=== PATIENT | female | born 1995 ===

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

== ENCOUNTER 2017-11-24 17:21 | Emergency (ER) | payer MEDICAID ==
[2017-11-24 17:34] VITALS: BMI 17.7
[2017-11-24 17:35] VITALS: BP 114/73; PULSE 88; RESP 19; TEMP 98.7; O2SAT 99
--- NOTE | 2017-11-24 18:28 | ED PDOC ---
HPI: General Adult Time Seen by Provider: 11/24/17 17:50 Chief Complaint (Nursing): Dizziness/Lightheaded Chief Complaint (Provider): Dizziness History Per: Patient History/Exam Limitations: no limitations Onset/Duration Of Symptoms: Days (x1 week) Additional Complaint(s): Panchito Chaves is a 22 year old female, with no significant past medical history, who presents to the emergency department complaining of dizziness and nausea onset for x1 week. Patient is unsure if she is . LMP was on October 12. She denies any vaginal bleeding, abdominal pain, vomiting or other medical complaints. PMD: None provided. Past Medical History Reviewed: Historical Data, Nursing Documentation, Vital Signs Vital Signs: Last Vital Signs Temp 98.7 F 11/24/17 17:34 Pulse 88 11/24/17 17:34 Resp 19 11/24/17 17:34 BP 114/73 11/24/17 17:34 Pulse Ox 99 11/24/17 18:30 - Medical History PMH: No Chronic Diseases - Surgical History Surgical History: No Surg Hx - Family History Family History: States: Unknown Family Hx - Social History Current smoker - smoking cessation education provided: No Alcohol: None Drugs: Denies - Home Medications Home Medications: Ambulatory Orders Medication Instructions Recorded Cyclobenzaprine [Cyclobenzaprine 10 mg PO BID #15 tab 10/12/16 HCl] Multivit/Folic Acid/I 1 tab PO DAILY #30 tab 11/24/17 [ Plus] - Allergies Allergies/Adverse Reactions: Allergies Allergy/AdvReac Type Severity Reaction Status Date / Time Unobtainable Allergy Verified 10/12/16 01:30 Review of Systems ROS Statement: Except As Marked, All Systems Reviewed And Found Negative Gastrointestinal: Positive for: Nausea. Negative for: Vomiting, Abdominal Pain Genitourinary Female: Negative for: Vaginal Bleeding Neurological: Positive for: Dizziness Physical Exam - Reviewed Nursing Documentation Reviewed: Yes Vital Signs Reviewed: Yes - Physical Exam Appears: Positive for: Non-toxic, No Acute Distress Head Exam: Positive for: ATRAUMATIC, NORMAL INSPECTION, NORMOCEPHALIC Skin: Positive for: Normal Color, Warm, Dry Eye Exam: Positive for: Normal appearance, EOMI, PERRL Neck: Positive for: Painless ROM Cardiovascular/Chest: Positive for: Regular Rate, Rhythm. Negative for: Murmur Respiratory: Positive for: Normal Breath Sounds. Negative for: Respiratory Distress Extremity: Positive for: Normal ROM (upper and lower extremities). Negative for : Deformity, Swelling Neurologic/Psych: Positive for: Alert, Oriented, Gait (steady). Negative for: Motor/Sensory Deficits - ECG O2 Sat by Pulse Oximetry: 99 (RA) Pulse Ox Interpretation: Normal Medical Decision Making Medical Decision Making: Time: 17:50 Initial Impression: Initial Plan: 18:00 -Patient tested positive for and states its her first time. Scribe Attestation: Documented by Yair Summers, acting as a scribe for Melba Carrillo PA-C Provider Scribe Attestation: All medical record entries made by the Scribe were at my direction and personally dictated by me. I have reviewed the chart and agree that the record accurately reflects my personal performance of the history, physical exam, medical decision making, and the department course for this patient. I have also personally directed, reviewed, and agree with the discharge instructions and disposition. Disposition - Clinical Impression Clinical Impression: - Disposition [facility]] Disposition: Routine/Home Disposition Time: 18:34 Condition: STABLE Prescriptions: Multivit/Folic Acid/I [ Plus] 1 tab PO DAILY #30 tab Instructions: - The First Month Forms: VIDDIX (Georgian), VIDDIX (French)
== END 2017-11-24 18:35 | disposition home or self-care (01) ==
LOC: H.ER 17:21
DX: R42 Dizziness and giddiness (principal); Z33.1 Pregnant state, incidental

== ENCOUNTER 2017-11-26 11:08 | Emergency (ER) | payer MEDICAID ==
[2017-11-26 11:08] VITALS: BMI 17.7
--- NOTE | 2017-11-26 12:15 | ED PDOC ---
HPI: Female Pain Time Seen by Provider: 11/26/17 11:20 Chief Complaint (Nursing): Female Genitourinary Chief Complaint (Provider): Female Genitourinary History Per: Patient History/Exam Limitations: no limitations Onset/Duration Of Symptoms: Days Current Symptoms Are (Timing): Still Present Additional Complaint(s): 22 y/o female with a PMHx of and 6 weeks presents to the ED complaining of vaginal spotting and pelvic pain, onset this morning. Patient states she has not had any care. Denies fever, vomiting, INTEGRATION SOFTWARE ENGINEER, taking vitamins, and urinary symptoms. PMD: None Provided : 1 Para: 0 Past Medical History Reviewed: Historical Data, Nursing Documentation, Vital Signs Vital Signs: Last Vital Signs Temp 97.9 F 11/26/17 11:36 Pulse 82 11/26/17 11:36 Resp 18 11/26/17 11:36 BP 119/70 11/26/17 11:36 Pulse Ox 98 11/26/17 11:36 - Medical History PMH: No Chronic Diseases - Surgical History Surgical History: No Surg Hx - Family History Family History: States: Unknown Family Hx - Social History Current smoker - smoking cessation education provided: No Alcohol: None Drugs: Denies - Home Medications Home Medications: Ambulatory Orders Medication Instructions Recorded Cyclobenzaprine [Cyclobenzaprine 10 mg PO BID #15 tab 10/12/16 HCl] Multivit/Folic Acid/I 1 tab PO DAILY #30 tab 11/24/17 [ Plus] Nitrofurantoin Macrocrystals 100 mg PO BID #14 cap 11/26/17 [Macrobid] - Allergies Allergies/Adverse Reactions: Allergies Allergy/AdvReac Type Severity Reaction Status Date / Time No Known Allergies Allergy Verified 11/26/17 11:36 Review of Systems ROS Statement: Except As Marked, All Systems Reviewed And Found Negative Constitutional: Negative for: Fever Gastrointestinal: Negative for: Vomiting Genitourinary Female: Negative for: Dysuria, Hematuria Physical Exam - Reviewed Nursing Documentation Reviewed: Yes Vital Signs Reviewed: Yes - Physical Exam Appears: Positive for: No Acute Distress Skin: Positive for: Normal Color, Warm, Dry Eye Exam: Positive for: Normal appearance, EOMI, PERRL ENT: Positive for: Normal ENT Inspection Neck: Positive for: Normal, Painless ROM Cardiovascular/Chest: Positive for: Regular Rate, Rhythm Respiratory: Positive for: Normal Breath Sounds Gastrointestinal/Abdominal: Positive for: Normal Exam, Soft, Tenderness (mild suprapubic tenderness) Pelvic Exam: Positive for: No Cerv. Motion Tender, Other (Normal exam, no bleeding at this time. os closed. Certified Coatings Inspector: Gaviota Montero). Negative for: Active Bleeding Extremity: Positive for: Normal ROM Neurologic/Psych: Positive for: Alert, Oriented (x3). Negative for: Motor/ Sensory Deficits - Laboratory Results Result Diagrams: 11/26/17 12:38 11/26/17 12:38 - ECG O2 Sat by Pulse Oximetry: 98 (RA) Pulse Ox Interpretation: Normal Medical Decision Making Medical Decision Making: Time: 122 abd pain, , with vag bleeding Rule out ectopic vs threatened ab. Plan: -- Type and Screen -- Beta-HCG, Quantitative -- CMP -- CBC with differentials -- Urine C&S -- Urinalysis -- OB Preg 1st Tri & OB Transvag US Time: 1512 TRANSVAG US RESULTS FINDINGS: UTERUS: Single Live intrauterine gestation. CRL is 5 mm equivalent to 6 weeks 2 days. Gestational sac diameter is 26 mm equivalent to 7 weeks 3 days. age (Ultrasound estimated): 6 weeks 6 days Date of delivery (Ultrasound estimated) : 07/16/2018 Heart rate: 117 bpm. Isabell-gestational hemorrhage: None. 2 mm yolk sac visualized. Uterus measures 8.9 x 6.2 x 4.8 cm. No mass CERVIX: Long and closed. No cervical abnormality seen. RIGHT OVARY: Measures 3.2 x 1.8 x 2.6 cm. No mass. Normal flow. LEFT OVARY: Measures 3.0 x 2.4 x 3.1 cm. No mass. Normal flow. FREE FLUID: None. OTHER FINDINGS: None. IMPRESSION: Single live intrauterine gestation of approximately 6 weeks 6 days gestational age. No subchorionic hemorrhage. heart rate 117 beats per minute. 2 mm yolk sac. Time: 1522 -- Labs and US reviewed w patient, patient presents with a UTI and approximately 7 week . Time: 1625 -- Patient to be discharged home with a UTI and threatened miscarriage. Patient was advised to take vitamins. -- Advised to follow up with consulting practice director in 1-2 days without fail. Advised to take medication as prescribed. Return to the emergency room at any time for any new or worsening symptoms such as pain or bleeding -- Patient states she fully agrees with and understands discharge instructions. States that she agrees with the plan and disposition. Verbalized and repeated discharge instructions and plan. I have given the patient opportunity to ask any additional questions. Scribe Attestation: Documented by Juan F Santana acting as a scribe for Dr. Olivia Leong MD. Provider Scribe Attestation: All medical record entries made by the Scribe were at my direction and personally dictated by me. I have reviewed the chart and agree that the record accurately reflects my personal performance of the history, physical exam, medical decision making, and the department course for this patient. I have also personally directed, reviewed, and agree with the discharge instructions and disposition. Disposition - Clinical Impression Clinical Impression: Threatened - Patient ED Disposition Is Patient to be Admitted: No Counseled Patient/Family Regarding: Studies Performed, Diagnosis, Need For Followup - Disposition Referrals: [facility] [Outside] [facility] [Outside] Disposition: Routine/Home Disposition Time: 16:00 Condition: IMPROVED Additional Instructions: Follow up with your primary consulting practice director in 2 days return to the ED with any worsening or concerning symptoms Prescriptions: Nitrofurantoin Macrocrystals [Macrobid] 100 mg PO BID #14 cap Instructions: Urinary Tract Infection, Adult (DC), Threatened Miscarriage (DC) Forms: ShareThe (Belarusian)
[2017-11-26 12:44] LABS: BASO # 0.1 K/uL (0.0-0.2); BASO % 0.7 % (0.0-2.0); EOS % 0.1 % (0.0-4.0); HEMOGLOBIN 15.1 g/dL (12.0-16.0); LYMPH # 1.9 K/uL (1.0-4.3); LYMPH % 19.9 % (20.0-40.0); MEAN CELL VOLUME 87.5 fl (81.0-99.0); MEAN CORPUSCULAR HEMOGLOBIN 30.8 pg (27.0-31.0); MEAN CORPUSCULAR HGB CONC 35.2 g/dL (33.0-37.0); MEAN PLATELET VOLUME 8.6 fl (7.2-11.7); MONO # 0.5 K/uL (0.0-0.8); MONO % 5.6 % (0.0-10.0); NEUT # 6.9 K/uL (1.8-7.0); NEUT % 73.7 % (50.0-75.0); RBC 4.89 Mil/uL (3.80-5.20); RED CELL DISTRIBUTION WIDTH 13.1 % (11.5-14.5); WHITE BLOOD COUNT 9.3 K/uL (4.8-10.8)
[2017-11-26 12:53] LABS: SQUAMOUS EPITHIAL 21 /hpf (0-5); URINE BACTERIA OCC (<OCC); URINE BILIRUBIN NEGATIVE (NEGATIVE); URINE BLOOD MODERATE (NEGATIVE); URINE CLARITY CLOUDY (Clear); URINE COLOR YELLOW (YELLOW); URINE GLUCOSE (UA) NEG (Normal); URINE LEUKOCYTE ESTERASE MOD Leu/uL (Negative); URINE PROTEIN NEGATIVE (NEGATIVE); URINE UROBILINOGEN 0.2-1.0 mg/dL (0.2-1.0)
[2017-11-26 13:10] LABS: ALB/GLOB RATIO 1.4 (1.0-2.1); ALBUMIN 4.9 g/dL (3.5-5.0); ALT/SGPT 19 U/L (9-52); AST/SGOT 19 U/L (14-36); BLOOD UREA NITROGEN 8 mg/dl (7-17); CALCIUM 9.9 mg/dL (8.4-10.2); GFR AFRICAN-AMERICAN > 60; GFR NON-AFRICAN AMERICAN > 60
--- NOTE | 2017-11-26 15:14 | US ---
PROCEDURE: OB Pelvic Ultrasound HISTORY: , bleeding COMPARISON: None available. FINDINGS: UTERUS: Single Live intrauterine gestation. CRL is 5 mm equivalent to 6 weeks 2 days. Gestational sac diameter is 26 mm equivalent to 7 weeks 3 days. age (Ultrasound estimated): 6 weeks 6 days Date of delivery (Ultrasound estimated) : 07/16/2018 Heart rate: 117 bpm. Isabell-gestational hemorrhage: None. 2 mm yolk sac visualized. Uterus measures 8.9 x 6.2 x 4.8 cm. No mass CERVIX: Long and closed. No cervical abnormality seen. RIGHT OVARY: Measures 3.2 x 1.8 x 2.6 cm. No mass. Normal flow. LEFT OVARY: Measures 3.0 x 2.4 x 3.1 cm. No mass. Normal flow. FREE FLUID: None. OTHER FINDINGS: None. IMPRESSION: Single live intrauterine gestation of approximately 6 weeks 6 days gestational age. No subchorionic hemorrhage. heart rate 117 beats per minute. 2 mm yolk sac.
[2017-11-26 16:43] VITALS: BP 114/68; PULSE 80; RESP 16; TEMP 98
[2017-11-26 18:34] VITALS: O2SAT 98
== END 2017-11-26 16:42 | disposition home or self-care (01) ==
LOC: H.ER 11:08
DX: O20.0 Threatened abortion (principal); O23.41 Unspecified infection of urinary tract in pregnancy, first trimester; Z3A.01 Less than 8 weeks gestation of pregnancy

== ENCOUNTER 2018-06-27 15:01 | Inpatient (IN) | payer MEDICAID, OTHER ==
[2018-06-27 18:21] VITALS: BMI 30.2
[2018-06-27 18:44] LABS: BASO % 0.2 % (0.0-2.0); EOS % 0.4 % (0.0-4.0); HEMOGLOBIN 13.9 g/dL (12.0-16.0); LYMPH # 1.5 K/uL (1.0-4.3); LYMPH % 13.8 % (20.0-40.0); MEAN CELL VOLUME 88.2 fl (81.0-99.0); MEAN CORPUSCULAR HEMOGLOBIN 29.7 pg (27.0-31.0); MEAN CORPUSCULAR HGB CONC 33.7 g/dL (33.0-37.0); MEAN PLATELET VOLUME 8.3 fl (7.2-11.7); MONO # 0.9 K/uL (0.0-0.8); MONO % 7.8 % (0.0-10.0); NEUT # 8.7 K/uL (1.8-7.0); NEUT % 77.8 % (50.0-75.0); RBC 4.67 Mil/uL (3.80-5.20); RED CELL DISTRIBUTION WIDTH 13.9 % (11.5-14.5); WHITE BLOOD COUNT 11.1 K/uL (4.8-10.8)
[2018-06-28] MEDS ORDERED: Nalbuphine HCL 10 mg/ml Ampule IVP PRN ×2 (00:41→23:02)
[2018-06-28] MEDS ORDERED: Lactated Ringer's 1,000 ML IV SCH ×3 (00:45→20:15)
[2018-06-28] MEDS ORDERED: Nalbuphine 20 mg/ml Inj (10 ml) ONE (00:53)
[2018-06-28] MEDS ORDERED: Fentanyl/Bupivacaine HCl 250 ML EPI ONE (06:34)
[2018-06-28] MEDS ORDERED: Bupivacaine HCl 0.25% PF (10 ml) Inj ONE (06:57)
[2018-06-28] MEDS ORDERED: OXYTOCIN/0.9 % NS 20 UNIT/1,000 ML BAG IV ONE (08:57)
[2018-06-28] MEDS ORDERED: Oxytocin 30 UNIT 30 UNITS/500 ML BAG IV ONE (08:57)
[2018-06-28] MEDS: Lactated Ringer's 1,000 ML IV SCH ×2 (10:30→14:30)
--- NOTE | 2018-06-28 12:23 | OBPN ---
Datetime: 06/28/2018 12:17 IP Progress Impression: Normal progression of labor IP Procedures: Sterile Vag Exam IP Progress Plan: Anticipate Vaginal Delivery Membranes, Provider: Ruptured Amniotic Fluid Color, Provider: Clear FHR - Baseline A Provider: 120's IP Progress Note Comment: 22 yo G1 at 37 wks w/ PROM, s/p cevidil, now fully dilated Will start pushing Anticipate VD Vital Signs Provider: Reviewed NICHD Variability Prov Fetus A: Moderate 6-25bpm Dilatation, Provider: 10 Effacement, Provider: 100 Station, Provider: 1 NICHD Decel Fetus A IP Provider: None Datetime: 06/27/2018 15:39 Pool Provider: Positive Nitrazine Provider: Positive NICHD Accel Fetus A IP Provider: [id number] FHR Category Provider Fetus A: Category I
[2018-06-28] MEDS ORDERED: Lactated Ringer's 1,000 ML IV ONE (17:16)
[2018-06-28] MEDS ORDERED: ceFAZolin 1 GM in Sodium Chloride 0.9% 100 ML IVPB ONE (17:16)
[2018-06-28] MEDS ORDERED: ePHEDrine 50 mg/ml Inj ONE (17:29)
[2018-06-28] MEDS ORDERED: Bupivacaine HCl 0.5% PF (30 ml) Inj ONE (17:30)
[2018-06-28] MEDS ORDERED: Morphine 5 mg/10 ml preservative-free Inj(Duramorph) ONE (18:52)
[2018-06-28] MEDS ORDERED: Oxycodone/Acetaminophen 5/325 mg Tab PO PRN ×5 (19:19→23:02)
--- NOTE | 2018-06-28 19:39 | OBPN ---
Datetime: 06/28/2018 19:36 IP Progress Impression: Arrest of dilatation/descent IP Informed Consent Obtain: Section Delivery; Risks, Benefits and Alternatives Discussed IP Procedures: Sterile Vag Exam IP Progress Plan: Deliver- Section Membranes, Provider: Ruptured Amniotic Fluid Color, Provider: Clear FHR - Baseline A Provider: 140's IP Progress Note Comment: 22 yo G1 at 37 wks w/ arrest of descent Pt is requesting to be delivered. Pt reports that she does not want to puch anymore Will proceed w/ cesarena section Consents obtained for procedure and for possible transfusion NICHD Variability Prov Fetus A: Moderate 6-25bpm Dilatation, Provider: 10 Effacement, Provider: 100 Station, Provider: 1
[2018-06-28] MEDS ORDERED: DiphenhydrAMINE 50 mg/ml Inj IVP PRN ×2 (19:40→23:02)
--- NOTE | 2018-06-28 19:52 | OBDS ---
DELIVERY PERSONNEL Delivery Doctor: Patricio John MD Notcher: Ariela Gonzalez RN Anesthesiologist: Clarence Arrington MD Resident: Dr. Aburto MATERNAL INFORMATION Delivery Anesthesia: Epidural Medications in Delivery: pitocin 30units Maternal Complications: None Provider Comments: Pre-op dx: 22 yo G1 at 37 wks w/ arrest of descent and maternal request for elbert parker section Post-op dx: Same Procedure: Primary low transverse section Surgeon: Alvaro Assistants: Drs. Rebecca Iglesias, OB fellow and Debora Aburto, PGY-1 Anesthesia: Epidural Anesthesiologist: Dr. Arrington Findings: Viable female delivered through clear fluid at 1812. Apgars 6 and 9. Wt 2575 gm s, 5#10.8. Nl appearing uterus, tubes and ovaries. EBL 1200mL LABOR SUMMARY EDC: 07/19/2018 00:00 No. Babies in Womb: 1 Attempted: No Labor Anesthesia: Epidural LABOR INFORMATION Reason for Induction: Not Applicable Onset of Labor: 06/28/2018 01:00 Complete Dilatation: 06/28/2018 12:15 Other Ripening Agents: cervidil Oxytocin: N/A Group B Beta Strep: Negative Antibiotics # of Doses: n/a Antibiotics Time of Last Dose: n/a Steroids Given: None Reason Steroids Not Administered: Not Applicable MEMBRANES Membranes Rupture Method: Spontaneous Rupture of Membranes: 06/27/2018 05:00 Length of Rupture (hrs): 37.20 Amniotic Fluid Color: Clear Amniotic Fluid Amount: Scant Amniotic Fluid Odor: Normal STAGES OF LABOR Stage 1 hrs: 11 Stage 1 min: 15 Stage 2 hrs: 5 Stage 2 min: 57 Stage 3 hrs: 0 Stage 3 min: 1 Total Time in Labor hrs: 17 Total Time in Labor min: 13 CSECTION DELIVERY Primary Indication: Arrest of Descent CSection Urgency: Elective CSection Incidence: Primary Labor: Labor Elective: Elective CSection Incision: Lower Uterine Transverse BABY A INFORMATION Infant Delivery Date/Time: 06/28/2018 18:12 Method of Delivery: Born in Route : No : N/A Forceps: N/A Vacuum Extraction: N/A Shoulder Dystocia : No SHOULDER DYSTOCIA BABY A Delivery Date/Time: 06/28/2018 18:12 PRESENTATION/POSITION BABY A Presentation: Cephalic Cephalic Presentation: Vertex Breech Presentation: N/A PLACENTA INFORMATION BABY A Placenta Delivery Time : 06/28/2018 18:13 Placenta Method of Delivery: Manual Removal Placenta Status: Delivered SCORES BABY A Heart Rate 1 min: >100 bpm Resp Effort 1 min: Slow, Irregular Reflex Irritability 1 min: Grimace Muscle Tone 1 min: Some Flexion of Extremities Color 1 min: Body [place], Extremities Blue Resuscitation Effort 1 min: Tactile Stimulation; PPV/NCPAP SCORE 1 MIN: 6 Heart Rate 5 min: >100 bpm Resp Effort 5 min: Good Cry Reflex Irritability 5 min: Cough or Sneeze or Pulls Away Muscle Tone 5 min: Active Motion Color 5 min: Body [place], Extremities Blue Resuscitation Effort 5 min: Tactile Stimulation SCORE 5 MIN: 9 INFANT INFORMATION BABY A Gestational Age at Delivery: 37.0 Gestational Status: Term Outcome : Liveborn Infant Condition : Stable Sex: Female IDENTIFICATION/MEDS BABY A ID Band Number: [id number] ID Band Location: Left Leg; Left Arm Vitamin K Given : Not Given Erythromycin Given: Not Given WEIGHT/LENGTH BABY A Infant Birthweight (gms): 2575 Infant Weight (lb): 5 Weight (oz): 11 CORD INFORMATION BABY A No. Cord Vessels: 3 Nuchal Cord : N/A Cord Blood Taken: Yes Infant Suction: Mouth; Nose ASSESSMENT BABY A Infant Complications: None Physical Findings at Delivery: Within Normal Limits Infant Respirations: Appears Normal Alcohol Rubber/ALS Called : No Infant Care By: Transferred To: Remains with Mother
[2018-06-28 21:52] LABS: BASO % 0.2 % (0.0-2.0); HEMOGLOBIN 11.4 g/dL (12.0-16.0); LYMPH # 0.6 K/uL (1.0-4.3); LYMPH % 4.1 % (20.0-40.0); MEAN CELL VOLUME 90.3 fl (81.0-99.0); MEAN CORPUSCULAR HEMOGLOBIN 29.4 pg (27.0-31.0); MEAN CORPUSCULAR HGB CONC 32.5 g/dL (33.0-37.0); MONO # 1.1 K/uL (0.0-0.8); MONO % 7.3 % (0.0-10.0); NEUT # 13.7 K/uL (1.8-7.0); NEUT % 88.4 % (50.0-75.0); PLATELET COUNT 253 K/uL (130-400); RBC 3.88 Mil/uL (3.80-5.20); RED CELL DISTRIBUTION WIDTH 13.8 % (11.5-14.5); WHITE BLOOD COUNT 15.5 K/uL (4.8-10.8)
[2018-06-28] MEDS ORDERED: Simethicone 80 mg Chewtab PO SCH (22:00)
[2018-06-28 22:58] LABS: ANISOCYTOSIS SLIGHT; BANDS 4 % (0-2); HYPOCHROMIC SLIGHT; LYMPHOCYTE 7 % (20-50); MONOCYTE 9 % (0-10); NEUTROPHIL 80 % (42-75); PLATELET ESTIMATE NORMAL (NORMAL); POIKILOCYTOSIS SLIGHT; TOTAL CELLS COUNTED 100
[2018-06-28] MEDS: Simethicone 80 mg Chewtab PO SCH (23:00)
--- NOTE | 2018-06-29 02:31 | OP ---
PROCEDURE DATE: 06/28/2018 PREOPERATIVE DIAGNOSIS: This is a 22-year-old 1 at 37 weeks with arrest of descent and maternal request for section. POSTOPERATIVE DIAGNOSIS: This is a 22-year-old 1 at 37 weeks with arrest of descent and maternal request for section. PROCEDURE: Primary low transverse section. SURGEON: Mushtaq John MD. ASSISTANTS: Dr. Rebecca Iglesias, OB fellow and Debora Aburto, PGY-1. ANESTHESIA: Epidural. ANESTHESIOLOGIST: Jose Alfredo Arrington MD. FINDINGS: Viable female , delivered through clear fluid at 18:12. Apgars 6 and 9 at one and five minutes respectively. The weight was 2575 g or 5 pounds 10.8 ounces. Normal-appearing uterus, tubes, and ovaries. ESTIMATED BLOOD LOSS: 1200 mL. DESCRIPTION OF PROCEDURE: The patient was taken to the operating room where epidural was bolused. She had a Garcia already in place. She was then prepped and draped in normal sterile fashion in the dorsal supine position with a leftward tilt. The epidural was tested and found to be adequate. A time-out had been done. A Pfannenstiel skin incision was then made with the scalpel and carried through to the underlying layer of fascia with the Bovie. The fascia was incised in the midline. The incision was extended laterally with the Garcia scissors. The inferior aspect of the fascial incision was then grasped with Steph clamps, elevated, and the underlying rectus muscles dissected off bluntly with the Garcia scissors. Attention was then turned to the superior aspect of this incision which in a similar fashion was grasped, tented up with Steph clamps, and the rectus muscles were dissected off bluntly with the Garcia scissors. The rectus muscles were then in the midline. The peritoneum was identified and entered digitally. The peritoneal incision was then extended superiorly and inferiorly with good visualization of the bladder. It should be noted that the bladder seemed kind of high and because filled the Garcia bulb. The bladder blade was then inserted and the vesicouterine peritoneum was identified, grasped with the pickups, and entered sharply with the Metzenbaum scissors. The incision was then extended laterally and the bladder flap was created digitally. The bladder blade was then re-inserted in the lower uterine segment. It was incised in a transverse fashion with the scalpel. The uterine incision was then extended laterally with the bandage scissors. The bladder blade was removed and the 's head delivered atraumatically. It took about 3 minutes from the uterine incision to delivery. It should be noted that the baby's head was quite low. The cord was clamped and cut. The was handed off to the awaiting extender. Cord blood was collected. The placenta was then removed and the uterus was massaged. The uterus was then exteriorized and cleared of all clots and debris. Initially, it had been noted that there was a deep midline extension into the cervix and this was first repaired with a running stitch of 0 Vicryl. It was also noted that the branch of the uterine artery was pumping on the left side of the uterus and a few stitches were placed to control this bleeding. The uterine incision was repaired with 0 Vicryl in a running locked fashion. It should be noted that the arterial bleed on the left side was noted to be bleeding again and this again was repaired with 0 Vicryl and with good hemostasis of the artery where it had been ligated and had stopped bleeding. A second layer of 0 Vicryl was then used in imbricating fashion for hemostasis and to reinforce the incision. The abdomen was then well irrigated. The uterus was returned to the abdomen. The gutters were cleared of all clots and the uterine incision was re-examined, found to be hemostatic. Actually, also should be mentioned that there was noted to be some bleeding on the right side of the uterine incision, there was like a slight extension which was repaired and that controlled that bleeding. The peritoneum was closed with 2-0 Vicryl. The muscle was closed with a running stitch of 0 Vicryl. The fascia was then re-approximated with 0 Vicryl in a running fashion. The subcutaneous fat was well irrigated. It was found to be hemostatic. A 2-0 plain gut in a running stitch was used to close the space of the fat. The skin was then closed with a subcuticular stitch using 4-0 Monocryl. The patient tolerated the procedure well. Sponge, lap, and needle counts were correct. The patient received 1 g of Ancef prior to the procedure. The patient was taken to recovery room in stable condition. Mushtaq John MD [facility] # [id number] TRISTAN
[2018-06-29] MEDS: Simethicone 80 mg Chewtab PO SCH ×4 (04:25→21:53)
[2018-06-29 05:52] LABS: HEMOGLOBIN 9.6 g/dL (12.0-16.0); MEAN CELL VOLUME 88.9 fl (81.0-99.0); MEAN CORPUSCULAR HEMOGLOBIN 29.7 pg (27.0-31.0); MEAN CORPUSCULAR HGB CONC 33.5 g/dL (33.0-37.0); RBC 3.23 Mil/uL (3.80-5.20)
[2018-06-29] MEDS ORDERED: Multivitamin With Minerals Tab PO SCH (09:00)
[2018-06-29] MEDS: Multivitamin With Minerals Tab PO SCH (09:04)
[2018-06-29] MEDS: Oxycodone/Acetaminophen 5/325 mg Tab PO PRN (12:01)
[2018-06-30] MEDS: Simethicone 80 mg Chewtab PO SCH ×4 (06:16→22:04)
[2018-06-30] MEDS: Oxycodone/Acetaminophen 5/325 mg Tab PO PRN ×4 (06:20→23:07)
[2018-06-30] MEDS: Multivitamin With Minerals Tab PO SCH (08:27)
--- NOTE | 2018-06-30 09:25 | OBPPN ---
Datetime: 06/30/2018 05:45 PP Pain Prov: Within normal limits PP Nausea Prov: Denies PP Flatus Prov: Yes PP BM Prov: No PP Breasts Prov: Not Done PP Heart Prov: Normal PP Lungs Prov: Normal PP Abdomen/Uterus Prov: Normal PP Lochia Prov: Normal PP Vulva/Perineum Prov: Normal PP CVA Tenderness Prov: Normal PP Extremities Prov: Normal PP C/S Incision Prov: Normal PP Progress Prov: Normal PP Impression Prov: Normal progression PP Plan Prov: Continue present management PP Progress Note Prov: POD 2 S: 22 yo s/p C-sec on 06/28/18, POD2. No overnight events. Pain tolerated with medication. A mbulating without dizziness/ lightheadedness/palpitations. Breastmilk (pumping) and formula feeding. Lochia < menses. + flatus/ -BM. Denies fever/chills, diarrhea, nausea/vomiting, chest pain, dyspnea, and dizziness. Tolerating regular diet. O: VS: stable GEN: NAD Cardio: S1S2, no murmurs Lungs: clear breath sounds b/l, no wheezing Abdomen: BS+, appropriate tenderness to palpation. Incision not visualized, dressing intact dry an d clean. Uterus is firm and at the level of the umbilicus. Appropriate tenderness EXT: No edema, calves non-tender NEURO/PSYCH: AAOx3, no grossly focal deficits, preserved affect and mood. H/H: aCBC 13.9/41.2 pCBC: 11.4/35.0 Assessment/Plan: 22 yo s/p C-sec on 06/28/18, POD2. Pt remains afebrile, tolerating pain with medication. - Anticipate Discharge 07/01/18 -Percocet 5/325mg q4 and Motrin 600mg po q6 for pain as per pain scale -Colace 100mg BID -Mylicon 80 mg Q6H -Encourage ambulation [place], PGY1 The patient was seen with the resident I agree with the note IP PP Procedures: None Vital Signs Provider PP: Reviewed; Within Normal Limits Datetime: 06/29/2018 05:52 PP Comments Phys Exam Prov: C/S incision not visualized yet as bandage is still in place (will be re moved 24 hrs after surgery) Vital Signs Provider Details PP: Tachycardic secondary to acute blood loss from C/S
[2018-07-01] MEDS: Oxycodone/Acetaminophen 5/325 mg Tab PO PRN (05:38)
[2018-07-01] MEDS: Simethicone 80 mg Chewtab PO SCH ×2 (05:41→14:08)
[2018-07-01] MEDS: Multivitamin With Minerals Tab PO SCH (08:15)
[2018-07-01 18:13] VITALS: BP 128/76; PULSE 106; RESP 20; TEMP 98.1; O2SAT 98
== END 2018-07-01 13:35 | disposition home or self-care (01) | DRG 371 ==
LOC: H.EROB2 15:01 → H.L&D 18:22 → H.OB/GYN 06-28 22:26
PROVIDERS: ADMIT Obstetrics & Gynecology Gynecology; ATTEND Obstetrics & Gynecology Gynecology
PROC: 3E0P7VZ Introduction of Hormone into Female Reproductive, Via Natural or Artificial Opening (ICD-10-PCS; 2018-06-27)
PROC: 4A1HXCZ Monitoring of Products of Conception, Cardiac Rate, External Approach (ICD-10-PCS; 2018-06-27)
PROC: 10D00Z1 Extraction of Products of Conception, Low, Open Approach (ICD-10-PCS; principal; 2018-06-28)
DX: O62.0 Primary inadequate contractions (principal); O62.1 Secondary uterine inertia; O61.0 Failed medical induction of labor; R00.0 Tachycardia, unspecified; Z37.0 Single live birth; Z3A.37 37 weeks gestation of pregnancy